=== PATIENT | male | born 1990 | race African-American/Black ===

== ENCOUNTER 2018-12-19 09:36 | Emergency (ER) | payer OTHER ==
[~2018-12-19] VITALS: Ht 175.3 cm; Wt 98.0 kg
[2018-12-19 09:40] VITALS: BP 141/90; TEMP 98
== END 2018-12-19 10:22 | disposition home or self-care (01) ==
LOC: ED 09:36
DX: L30.9 Dermatitis, unspecified (principal)
CPT/HCPCS: 99282